=== PATIENT | male | born 1975 | race Caucasian/White ===

== ENCOUNTER → 2017-04-25 | Outpatient (CLI) | payer MEDICAID ==
[~2017-04-25] MED LIST: MEDROL 4MG. DOSE4 MG PO; PHENERGAN 25MG.25 M1 PO
[2017-04-25 12:47] LABS: HEMOGLOBIN 17.6 g/dL (14.1-18.0); LYMPH # 3.9 K/mm3 (0.7-4.5); LYMPH % 36.8 % (10-50)
[2017-04-26 08:48] LABS: RA Latex Turbid. <10.0 IU/mL (0.0-13.9)
== END ==
LOC: LAB 12:12
PROVIDERS: Student in an Organized Health Care Education/Training Program
DX: M35.9 Systemic involvement of connective tissue, unspecified (principal)